=== PATIENT | male | born 1945 | race Caucasian/White ===

== ENCOUNTER 2023-09-16 22:21 | Emergency (ER) | payer OTHER, MEDICARE ==
[~2023-09-16] VITALS: Ht 165.1 cm; Wt 86.9 kg
[2023-09-16 22:30] VITALS: BP 110/58
[2023-09-16 22:44] LABS: BASOPHILS 0.7 % (0-2); EOSINOPHILS 2.9 % (0-6); HEMATOCRIT 25.5 % (35.0-50.0); HEMOGLOBIN 8.2 g/dL (12.0-18.0); LYMPHOCYTES 16.6 % (24-44); MCH 29.4 (27-36); MCHC 32.3 g/dl (30-36); MCV 90.8 fl (81-99); MONOCYTES 5.6 % (0-12); NEUTROPHILS 74.2 % (39-80); PLATELET COUNT 174 K/uL (140-440); RBC 2.81 M/ul (4.3-5.7)
[2023-09-16] MEDS ORDERED: DIPHTH,PERTUSS(ACELL),TET VAC 0.5 ML SYRINGE IM ONE (22:45)
[2023-09-16 22:59] LABS: ALBUMIN 3.1 g/dL (3.4-5.0); ALBUMIN/GLOBULIN RATIO 0.89 (1.1-2.4); ALCOHOL, MEDICAL <3 ng/dL (<3); ALKALINE PHOSPHATASE 91 U/L (46-116); ALT (SGPT) 19 U/L (14-59); ANION GAP 9.8 (7-21); AST (SGOT) 16 U/L (15-37); BILIRUBIN, TOTAL 0.5 ng/dL (0.2-1.0); CALCIUM 8.4 mg/dL (8.5-10.1); CARBON DIOXIDE 32 mmol/L (21-32); CHLORIDE 105 mmol/L (98-107); CREATININE, SERUM 1.87 mg/dL (0.70-1.30); GLOMERULAR FILTRATION RATE,EST 36 mL/min (>60); POTASSIUM 3.8 mmol/L (3.5-5.1); PROTEIN, TOTAL 6.6 g/dL (6.4-8.2); UREA NITROGEN 26 mg/dL (7-18)
[2023-09-16 23:19] LABS: ABO O; ANTIBODY SCREEN NEGATIVE; RH POSITIVE
--- OUTSIDE RECORDS SUMMARY | 2023-09-16 23:21 | XMS ---
PreManage Notification: EDY CARDOZO Security La[employer] Events No recent Security Events currently on file CRITERIA MET - 6 ED Visits in 6 Months - [facility] - 3 Facilities in 90 Days CARE PROVIDERS There are no care providers on record at this time. Ana has no Care Guidelines for this patient. Eligio VISIT COUNT (12 MO.) [address] [facility] Herlinda 1 [place] SmallwoodHargillPrit[facility] [place] [facility] TOTAL 8 NOTE: Visits indicate total known visits. ED/UCC VISIT TRACKING (12 MO.) 09/16/2023 22:22 [facility] [place] TYPE: Emergency COMPLAINT: - FALL 08/14/2023 09:34 Merlin HERNANDE[facility] TYPE: Emergency DIAGNOSES: - Hematuria, unspecified - blood in the urine - Hematuria 08/05/2023 17:49 [facility] TYPE: Emergency DIAGNOSES: - Anemia, unspecified - Encounter for other specified aftercare - Abnormal Labs - Md order, Transfusion 04/28/2023 09:54 [facility] TYPE: Emergency DIAGNOSES: - Other specified abnormal findings of blood chemistry - Chest Pain - CP 04/25/2023 15:52 [facility] TYPE: Emergency DIAGNOSES: - Abnormal electrocardiogram [ECG] [EKG] - Acute ischemic heart disease, unspecified - Other specified abnormal findings of blood chemistry - Chest Pain - CP 03/25/2023 12:42 [facility] TYPE: Emergency DIAGNOSES: - Chest pain; SOB - Shortness of Breath 03/25/2023 12:42 [facility] TYPE: Emergency DIAGNOSES: - Shortness of Breath 11/01/2022 20:04 [facility] TYPE: Emergency DIAGNOSES: - COVID-19 - Confusion - Confusion, Covid INPATIENT VISIT TRACKING (12 MO.) [facility] DIAGNOSES: - Abnormal electrocardiogram [ECG] [EKG] - Acute ischemic heart disease, unspecified - Other specified abnormal findings of blood chemistry [facility]23 [facility] DIAGNOSES: - Dyskinesia of esophagus - Iron deficiency anemia, unspecified - Other malaise - Pneumonia due to Methicillin resistant Staphylococcus aureus - Pneumonia, unspecified organism - Unspecified systolic (congestive) heart failure - Shortness of Breath [email or web address]
[2023-09-16 23:31] LABS: BILIRUBIN, URINE NEGATIVE (negative); BLOOD/HGB, URINE NEGATIVE (Negative); KETONE, URINE NEGATIVE (Negative); LEUK ESTERASE, URINE TRACE (negative); NITRITE, URINE NEGATIVE (negative)
[2023-09-16 23:37] LABS: EPITHELIAL CELLS, URINE SQUAMOUS 1+ /lpf (0-1+)
[2023-09-16 23:38] LABS: RED BLOOD CELLS, URINE 0-1 /hpf (0-5)
[2023-09-16 23:46] LABS: AMPHETAMINES, URINE NEGATIVE (NEGATIVE); BARBITURATES, URINE NEGATIVE (NEGATIVE); BENZODIAZEPINE, URINE NEGATIVE (NEGATIVE); BUPRENORPHINE, URINE NEGATIVE (NEGATIVE); CANNABINOID, URINE NEGATIVE (NEGATIVE); COCAINE, URINE NEGATIVE (NEGATIVE); ECSTASY, URINE NEGATIVE (NEGATIVE); FENTANYL, URINE NEGATIVE (NEGATIVE); METHADONE, URINE NEGATIVE (NEGATIVE); OPIATES, URINE NEGATIVE (NEGATIVE); OXYCODONE, URINE NEGATIVE (NEGATIVE); PHENCYCLIDINE, URINE NEGATIVE (NEGATIVE)
[2023-09-16 23:47] LABS: BACTERIA, URINE RARE /hpf (negative); CRYSTALS, URINE CALCIUM OXALATE 2+ (0-1+)
[2023-09-16 23:48] LABS: CASTS, URINE NONE SEEN \\lpf; REFLEX CULTURE, URINE No (No)
== END 2023-09-16 23:42 | disposition home or self-care (01) ==
LOC: ED 22:21
PROVIDERS: Internal Medicine
DX: S01.01XA Laceration without foreign body of scalp, initial encounter (principal); S80.02XA Contusion of left knee, initial encounter; M25.512 Pain in left shoulder; W01.0XXA Fall on same level from slipping, tripping and stumbling without subsequent striking against object, initial encounter; I25.10 Atherosclerotic heart disease of native coronary artery without angina pectoris; Z79.82 Long term (current) use of aspirin; Z79.02 Long term (current) use of antithrombotics/antiplatelets; Z88.5 Allergy status to narcotic agent; Z23 Encounter for immunization
CPT/HCPCS: 36415; 70450; 71045; 73030; 73560; 80053; 80307; 81001; 85025; 85060; 86850; 86900; 86901; 90715; G0480